=== PATIENT | male | born 1975 | race American Indian/Alaskan Native ===

== ENCOUNTER 2018-06-06 09:23 | Emergency (ER) | payer OTHER ==
[2018-06-06 09:44] VITALS: BP 117/62
[2018-06-06] MEDS ORDERED: DECADRON IM ONE (09:48)
[2018-06-06] MEDS ORDERED: IBUPROFEN PO ONE ×2 (09:48→09:54)
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
== END 2018-06-06 11:16 | disposition home or self-care (01) ==
LOC: ED 09:23
DX: S20.212A Contusion of left front wall of thorax, initial encounter (principal); F17.200 Nicotine dependence, unspecified, uncomplicated; V49.49XA Driver injured in collision with other motor vehicles in traffic accident, initial encounter; Y93.89 Activity, other specified; Y92.89 Other specified places as the place of occurrence of the external cause; Y99.8 Other external cause status

== ENCOUNTER 2019-01-14 23:46 | Emergency (ER) | payer OTHER ==
[2019-01-14 23:51] VITALS: BP 115/71
[2019-01-15] MEDS ORDERED: DELTASONE PO ONE (00:40)
[2019-01-15] MEDS ORDERED: IBUPROFEN PO ONE (00:40)
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
== END 2019-01-15 01:00 | disposition home or self-care (01) ==
LOC: ED 23:46
DX: M62.838 Other muscle spasm (principal)
CPT/HCPCS: 99282; J7512

== ENCOUNTER 2019-07-15 21:53 | Emergency (ER) | payer OTHER ==
[2019-07-15 23:26] VITALS: BP 155/93
--- NOTE | 2019-07-16 02:31 | Emergency Department Report ---
Chief Complaint: Dental/Oral Stated Complaint: TOOTHACHE Time Seen by Provider: 07/16/19 01:49 - HPI History of Present Illness: This is a 44-year-old -Citizen Of [place] male who presents to the emergency room with left upper dental pain for several days. Patient reports pain worse tonight even after applying Orajel. Patient states he has a dentist appointment in 1-1/2 weeks and cannot tolerate pain. He denies drooling, hoarseness, dysphagia, sore throat, fever, or chills. - ROS Review of Systems: HEENT: Dental pain All other systems were reviewed and patient denies complaints. - Exam Vital Signs: Vital Signs 07/15/19 23:25 Temperature 97.5 F L Pulse Rate 74 Respiratory 18 Rate Blood Pressure 155/93 O2 Sat by Pulse 100 Oximetry Physical Exam: HEENT: #13 a large dark brown dental caries in the middle of the tooth, tender to palpation, no gingival swelling, no palpated pus pockets or abscess. Respiratory exam: Present: normal lung sounds bilaterally. Absent: respiratory distress Cardiovascular Exam: Present: regular rate, normal rhythm. Absent: systolic murmur, diastolic murmur, rubs, gallop GI/Abdominal exam: Present: soft, normal bowel sounds. Absent: distended, tenderness, guarding, rebound, rigid Extremities exam: Present: normal inspection Neurological exam: Present: alert, oriented X3, normal gait Psychiatric exam: Present: normal affect, normal mood Skin exam: Present: warm, dry, intact, normal color. Absent: rash MSE screening note: Focused history and physical exam performed. Due to findings the following was ordered: ED Medical Decision Making - Medical Decision Making This is a 44-year-old male that presents with dental pain that started several days ago worse since last night. Vitals are stable and patient in no acute distress. Susceptible of dental caries. Start amoxicillin in tramadol. Referral to dentist for continued care. Discussed plan with patient. He agreed with ER plan. Discharged home stable. Patient given a handout of emergency dental clinics for follow-up. ED Disposition for MSE Clinical Impression: Toothache, Dental caries Disposition: TO HOME OR SELFCARE Is pt being admited?: No Condition: Stable Instructions: Dental Caries (ED), Toothache (ED) Additional Instructions: Follow up with Dentist from the referrals list below or the handout for community resources. Prescriptions: Amoxicillin [Trimox CAP] 500 mg PO BID #14 capsule traMADoL [Ultram 50 MG tab] 50 mg PO Q6HR PRN #12 tablet PRN Reason: Pain Referrals: KATLYN GASPAR MD [Primary Care Provider] - 3-5 Days [facility] [Outside] - 3-5 Days [facility] [Outside] - 3-5 Days [facility] [Outside] - 3-5 Days Forms: Work/School Release Form(ED) Time of Disposition: 02:38
== END 2019-07-16 03:05 | disposition home or self-care (01) ==
LOC: ED 21:53
DX: K02.9 Dental caries, unspecified (principal)
CPT/HCPCS: 99282

== ENCOUNTER 2022-01-01 18:40 | Emergency (ER) | payer SELFPAY ==
[2022-01-01] MEDS ORDERED: HYDROcodone/ACETAMINOPHEN 5-325 MG TAB PO STA (22:05)
--- NOTE | 2022-01-01 22:14 | Emergency Department Report ---
ED ENT HPI - General Chief complaint: Dental/Oral Stated complaint: BAD TOOTH Time Seen by Provider: 01/01/22 20:38 Source: patient Mode of arrival: Ambulatory Limitations: No Limitations - History of Present Illness MD complaint: tooth pain -: Gradual Location: tooth # Severity: mild, moderate Quality: aching, dull Consistency: constant Improves with: none - Related Data Previous Rx's Medication Instructions Recorded Last Taken Type Cyclobenzaprine [Flexeril] 10 mg PO TID PRN #10 tablet 01/15/19 Unknown Rx Ibuprofen [Motrin] 800 mg PO Q8HR PRN #30 tablet 01/15/19 Unknown Rx predniSONE [Deltasone] 20 mg PO DAILY #5 tablet 01/15/19 Unknown Rx Amoxicillin [Trimox CAP] 500 mg PO BID #14 capsule 07/16/19 Unknown Rx traMADoL [Ultram 50 MG tab] 50 mg PO Q6HR PRN #12 tablet 07/16/19 Unknown Rx Amoxicillin [Amoxicillin TAB] 875 mg PO BID #20 tablet 01/01/22 Unknown Rx Chlorhexidine Mouthwash [Peridex] 15 ml MM BID #1 bottle 01/01/22 Unknown Rx Ketorolac [Toradol] 10 mg PO Q6H PRN #15 tablet 01/01/22 Unknown Rx Lidocaine Viscous 2% 5 ml MM Q3H PRN #120 udc 01/01/22 Unknown Rx Allergies Allergy/AdvReac Type Severity Reaction Status Date / Time No Known Allergies Allergy Verified 06/06/18 09:44 ED Dental HPI - General Chief complaint: Dental/Oral Stated complaint: BAD TOOTH Time Seen by Provider: 01/01/22 20:38 Source: patient Mode of arrival: Ambulatory Limitations: No Limitations - Related Data Previous Rx's Medication Instructions Recorded Last Taken Type Cyclobenzaprine [Flexeril] 10 mg PO TID PRN #10 tablet 01/15/19 Unknown Rx Ibuprofen [Motrin] 800 mg PO Q8HR PRN #30 tablet 01/15/19 Unknown Rx predniSONE [Deltasone] 20 mg PO DAILY #5 tablet 01/15/19 Unknown Rx Amoxicillin [Trimox CAP] 500 mg PO BID #14 capsule 07/16/19 Unknown Rx traMADoL [Ultram 50 MG tab] 50 mg PO Q6HR PRN #12 tablet 07/16/19 Unknown Rx Amoxicillin [Amoxicillin TAB] 875 mg PO BID #20 tablet 01/01/22 Unknown Rx Chlorhexidine Mouthwash [Peridex] 15 ml MM BID #1 bottle 01/01/22 Unknown Rx Ketorolac [Toradol] 10 mg PO Q6H PRN #15 tablet 01/01/22 Unknown Rx Lidocaine Viscous 2% 5 ml MM Q3H PRN #120 udc 01/01/22 Unknown Rx Allergies Allergy/AdvReac Type Severity Reaction Status Date / Time No Known Allergies Allergy Verified 06/06/18 09:44 ED Review of Systems ROS: Stated complaint: BAD TOOTH Other details as noted in HPI Comment: All other systems reviewed and negative ED Past Medical Hx - Past Medical History Previous Medical History?: No - Surgical History Past Surgical History?: Yes Additional Surgical History: left arm - Social History Smoking Status: Current Every Day Smoker Substance Use Type: Alcohol - Medications Home Medications: Home Medications Medication Instructions Recorded Confirmed Last Taken Type Cyclobenzaprine [Flexeril] 10 mg PO TID PRN #10 tablet 01/15/19 Unknown Rx Ibuprofen [Motrin] 800 mg PO Q8HR PRN #30 tablet 01/15/19 Unknown Rx predniSONE [Deltasone] 20 mg PO DAILY #5 tablet 01/15/19 Unknown Rx Amoxicillin [Trimox CAP] 500 mg PO BID #14 capsule 07/16/19 Unknown Rx traMADoL [Ultram 50 MG tab] 50 mg PO Q6HR PRN #12 tablet 07/16/19 Unknown Rx Amoxicillin [Amoxicillin TAB] 875 mg PO BID #20 tablet 01/01/22 Unknown Rx Chlorhexidine Mouthwash [Peridex] 15 ml MM BID #1 bottle 01/01/22 Unknown Rx Ketorolac [Toradol] 10 mg PO Q6H PRN #15 tablet 01/01/22 Unknown Rx Lidocaine Viscous 2% 5 ml MM Q3H PRN #120 udc 01/01/22 Unknown Rx ED Physical Exam - General Limitations: No Limitations General appearance: alert, in no apparent distress - Head Head exam: Present: atraumatic, normocephalic - Eye Eye exam: Present: normal appearance, PERRL, EOMI Pupils: Present: normal accommodation - ENT ENT exam: Present: mucous membranes moist, other (Severe dental erosion noted with dental caries throughout upper and lower. Airway patent tongue uvula midline no pharyngeal swelling or erythema. No exudate) - Neck Neck exam: Present: normal inspection - Respiratory Respiratory exam: Present: normal lung sounds bilaterally. Absent: respiratory distress, wheezes, rales, rhonchi, chest wall tenderness, accessory muscle use - Cardiovascular Cardiovascular Exam: Present: regular rate, normal rhythm. Absent: systolic murmur, diastolic murmur, rubs, gallop - GI/Abdominal GI/Abdominal exam: Present: soft, normal bowel sounds - Rectal Rectal exam: Present: deferred - Extremities Exam Extremities exam: Present: normal inspection, full ROM, normal capillary refill - Back Exam Back exam: Present: normal inspection. Absent: CVA tenderness (R), CVA tenderness (L) - Neurological Exam Neurological exam: Present: alert, oriented X3, CN II-XII intact - Psychiatric Psychiatric exam: Present: normal affect, normal mood - Skin Skin exam: Present: warm, dry, intact, normal color. Absent: rash ED Course Vital Signs 01/01/22 18:55 Temperature 98.2 F Pulse Rate 99 H Respiratory 18 Rate Blood Pressure 127/81 [Right] O2 Sat by Pulse 95 Oximetry Critical care attestation.: If time is entered above; I have spent that time in minutes in the direct care of this critically ill patient, excluding procedure time. ED Disposition Clinical Impression: Infected dental caries Disposition: HOME / SELF CARE / HOMELESS Is pt being admited?: No Does the pt Need Aspirin: No Condition: Stable Instructions: Dental Abscess, Preventive Dental Care, Adult Prescriptions: Amoxicillin [Amoxicillin TAB] 875 mg PO BID #20 tablet Lidocaine Viscous 2% 5 ml MM Q3H PRN #120 udc PRN Reason: Pain, Moderate (4-6) Chlorhexidine Mouthwash [Peridex] 15 ml MM BID #1 bottle Ketorolac [Toradol] 10 mg PO Q6H PRN #15 tablet PRN Reason: Pain Referrals: [facility] [Provider Group] - 3-5 Days [facility] [Outside] - 3-5 Days
[2022-01-02 00:22] VITALS: BP 132/82
== END 2022-01-02 00:24 | disposition home or self-care (01) ==
LOC: ED 18:40
DX: K04.7 Periapical abscess without sinus (principal); F17.200 Nicotine dependence, unspecified, uncomplicated; Z72.89 Other problems related to lifestyle; Z79.899 Other long term (current) drug therapy
CPT/HCPCS: 99282